=== PATIENT | male | born 1960 | race Caucasian/White ===

== ENCOUNTER → 2016-06-24 | Outpatient (CLI) | payer BC, SELFPAY | END | disposition home or self-care (01) | LOC: RAD.S 06-06 17:15 | DX: R05 Cough (principal); F17.200 Nicotine dependence, unspecified, uncomplicated; J31.2 Chronic pharyngitis; R91.1 Solitary pulmonary nodule; M43.8X4 Other specified deforming dorsopathies, thoracic region ==